=== PATIENT | male | born 1955 | race Caucasian/White ===

== ENCOUNTER 2022-05-13 08:20 | Outpatient (CLI) | payer MEDICARE, SELFPAY ==
[2022-05-13 12:18] LABS: Albumin* 3.9 g/dL (3.3-5.0); Chloride* 104 mmol/L (96-114)
[2022-05-13 12:19] LABS: Potassium* 4.8 mmol/L (3.6-5.1); Sodium* 139 mmol/L (135-149)
[2022-05-13 12:20] LABS: Cholesterol* 123 mg/dL (90-199)
[2022-05-13 12:21] LABS: Alanine Aminotransferase* 31 U/L (4-50); Alkaline Phosphatase* 100 U/L (40-150); Aspartate Amino Transferase* 24 U/L (12-35); Bilirubin Total* 0.4 mg/dL (0.1-1.5); Blood Urea Nitrogen* 20 mg/dL (7-30); Carbon Dioxide* 32 mmol/L (20-32); Creatinine* 0.9 mg/dL (0.5-1.5); Estimated Glomerular Filt Rate 94 ml/min; Glucose* 175 mg/dL (60-115); Total Protein* 6.5 g/dL (6.0-8.3)
[2022-05-13 12:22] LABS: Calcium* 8.9 mg/dL (8.4-10.6); HDL Cholesterol* 45 mg/dL (>=40); LDL Cholesterol Calculated 63 mg/dL (<100); Triglycerides* 74 mg/dL (40-149)
[2022-05-13 12:54] LABS: PSA Diagnostic* 6.22 ng/mL (0.10-4.00)
== END 2022-05-13 08:21 | disposition home or self-care (01) ==
PROVIDERS: PCP Family Medicine; Visit Provider Family Medicine
DX: E11.9 Type 2 diabetes mellitus without complications (principal); R97.20 Elevated prostate specific antigen [PSA]; E78.5 Hyperlipidemia, unspecified; I10 Essential (primary) hypertension; L98.9 Disorder of the skin and subcutaneous tissue, unspecified; Z12.5 Encounter for screening for malignant neoplasm of prostate
CPT/HCPCS: 80053; 80061; 84153

== ENCOUNTER 2023-06-26 15:34 | Outpatient (CLI) | payer MEDICARE, SELFPAY | END 2023-06-26 15:35 | disposition home or self-care (01) | PROVIDERS: PCP Family Medicine; Visit Provider Family Medicine | DX: E11.9 Type 2 diabetes mellitus without complications (principal); I10 Essential (primary) hypertension; E78.5 Hyperlipidemia, unspecified; R97.20 Elevated prostate specific antigen [PSA] | CPT/HCPCS: 80048; 80061; 84153 ==

== ENCOUNTER 2023-12-04 22:15 | Outpatient (REF) | payer MEDICARE, SELFPAY ==
--- OUTSIDE RECORDS SUMMARY | 2023-12-04 22:18 | XMS_ITS | Clinical Summary ---
Author Name Unknown Organization [employer] [facility] Address [place], [place] [address] Care Team Providers Care Personnel Generalist Manager Name Role Phone Lasha Tellez MD Primary Care Provider Allergies No known active allergies Medications Medication Sig Dispensed Refills Start Date End Date Status metFORMIN (GLUCOPHAGE) 500 mg tabletIndications:Ach illes bursitis or tendinitis Take 1 tablet by mouth 2 times daily with meals. 180 tablet 3 05/12/2011 Active furosemide (LASIX) 40 mg tabletIndications:HTN (hypertension) Take 1 tablet by mouth 2 times daily. 90 tablet 0 10/31/2014 Active Active Problems Problem Noted Date Diagnosed Date Type 2 diabetes mellitus without complication Diabetes 04/15/2010 HTN (hypertension) 04/15/2010 Immunizations Name Administration Dates Next Due Pneumococcal Poly,23-Valent (Pneumovax) 12/21/19 05 Tdap 12/20/2004 Family History Medical History Relation Name Comments Heart Disease Father [place] Cancer-breast Mother @ 69 Diabetes Mother Other Sister lung issues Relation Name Status Comments Father Mother Sister Social History Tobacco Use Types Packs/Day Years Used Date Smoking Tobacco: Never Smokeless Tobacco: Never Alcohol Use Standard Drinks/Week Comments Yes 4 (1 standard drink = 0.6 oz pur e alcohol) Sex and Gender Information Value Date Recorded Sex Assigned at Not on file Gender Identity Not on file Sexual Orientation Not on file Obstetrics History Last Filed Vital Signs Vital Sign Reading Time Taken Comments Blood Pressure 128/80 05/25/2015 1:20 PM CDT Pulse 76 05/25/2015 1:20 PM CDT Temperature 36.4 ??C (97.6 ??F) 10/31/2014 2:26 PM CS T Respiratory Rate - - Oxygen Saturation - - Inhaled Oxygen Concentration - - Weight 120.2 kg (265 lb) 05/25/2015 1:20 PM CDT Height 177.8 cm (5' 10) 05/25/2015 1:20 PM CDT Body Mass Index 38.02 05/25/2015 1:20 PM CDT Plan of Treatment Health Maintenance Due Date Last Done Comments COVID-19 vaccine series (#1) 06/08/1956 Depression screening for age 12+ 1966 BMI (ht and wt on same day) for age 18+ 1972 Hepatitis C screening for age 18-79 1972 Colonoscopy through age 75 1999 Zoster (shingles) series for age 50+ (1 of 2) 2004 Tetanus booster 12/20/2014 12/20/2004, 12/20/2004 Lipids for age 45-75 2016 2011, 03/30/20 09 Pneumococcal series for age 65+ (2 of 2 - PCV) 2019 12/20/2004 Influenza for age 65+ 06/16/2023 Tdap Completed 12/20/2004 Care Teams Personnel Generalist Manager Relationship Specialty Start Date End Date Lasha Tellez MD PCP - General Family Practice 09/24/11
[2023-12-04 23:25] LABS: PSA Diagnostic* 6.13 ng/mL (0.10-4.00)
== END 2023-12-04 22:16 | disposition home or self-care (01) ==
LOC: NPINS 22:15
PROVIDERS: PCP Family Medicine; Visit Provider Urology
DX: R97.20 Elevated prostate specific antigen [PSA] (principal)
CPT/HCPCS: 84153

== ENCOUNTER 2024-07-05 12:22 | Outpatient (CLI) | payer MEDICARE, SELFPAY ==
--- OUTSIDE RECORDS SUMMARY | 2024-07-05 12:26 | XMS_ITS | Continuity of Care Document ---
Author Organization [facility] [place] [facility], [facility] Address [address] [place] [address] Assessment No assessment recorded. Plan of Treatment Reminders Order Date Submit Date Provider Last Modified By Organization Details Last Modified Time Details Appointments ESTABL ISHED 10 2023 02:20P M Not available Not available Not available Lab PSA, serum or plasma 2023 024 darian hitchcock [facility], [address], [place], [address], 05/22/2024 15:56:31 PSA, total, serum or plasma - Linda mejia is schedu le to see Dr Arce on 4 at 3:20 PM 2023 024 darian hitchcock [facility], [address], [place], [address], 05/30/2024 09:08:19 Referral None record ed. Procedures None record ed. Surgeries None record ed. Imaging None record ed. Medication Orders None record ed. Patient TargetsNo targets recorded. Patient InstructionsNo instructions recorded. Reason for Referral None Reported. Results Created Date Observation Date Name Description Value Unit Range Abnormal Flag Note LastModifiedBy Organization Detail LastModifiedTime 05/22/2005/22/2024 PSA, serum or plasm a PSA 9.7 ng/ml 0-4.0 NG/mL Not Available [facility] [address], [place], [address], 05/21/2024 13:16:26 Result Notes None recorded. Procedures Surgical History Date Name Laterality Status Provider Name and Address Organization Details Recorded Time 4 Bladder Scan [facility]2024 13:16:18 4 Blood Draw/MOLASSES AND CARAMEL OPERATOR/PSA RESULTS [facility] 05/21/2024 13:16:20 4 Bladder Scan completed Rusty Gomez [facility] 12/06/2023 15:18:35 3 Bladder Scan completed Sadie Reed [facility] 06/07/2023 14:41:58 3 Blood Draw/MOLASSES AND CARAMEL OPERATOR/PSA RESULTS completed Sadie Reed [facility] 06/07/2023 14:28:31 3 Bladder Scan completed Sadieleoncio Reed [facility] 03/06/2023 12:39:19 3 Blood Draw/MOLASSES AND CARAMEL OPERATOR/PSA RESULTS completed Chirag Arce MD [address] [place] [address],[address], [address], [facility] 03/06/2023 11:53:43 3 Blood Draw/MOLASSES AND CARAMEL OPERATOR/PSA RESULTS completed Chirag Arce MD [address] [place] [address],[address] [place] [address], [address], [facility] 10/31/2022 15:51:53 2 Prostate Biopsy Procedure completed Chirag Arce MD [address] [place] [address],[address], [place], [address], [facility] 08/26/2022 16:08:53 2 URONAV completed Chirag Arce MD [address] [place] [address],[address], [address], [facility] 08/26/2022 11:03:42 2 Bladder Scan completed Mikhail Rubalcava [facility] 07/18/2022 15:16:02 5 Colonoscopy completed Criss Burnham [facility] 08/26/2022 15:37:45 Imaging Results None recorded. Procedure Notes None recorded. Medical Equipment None Reported. Allergies No known drug allergies Medications Name Sig Start Date Stop Date Status Note LastModified by Organization Details LastModified Time atorvastati n 40 mg tablet TAKE 1 TABLET BY MOUTH AT BEDTIME active Not Available Not Available No t Available metformin 500 mg tablet TAKE 1 TABLET BY MOUTH IN THE MORNING AND 2 TABLETS AT SUPPER. APPOINTME NT AND LABS DUE IN MAY. active Not Available Not Available No t Available clindamycin HCl 300 mg capsule 12/06 completed Not Available Not Available Not Available azithromyci n 250 mg tablet TAKE 2 TABLETS BY MOUTH ON DAY 1, AND THEN TAKE 1 TABLET BY MOUTH ONCE A DAY ON DAY 2 THROUGH DAY 5 12/06 completed Not Available Not Available Not Available hydrocodone 5 mg-acetamin ophen 325 mg tablet 12/06 completed Not Available Not Available Not Available glipizide ER 10 mg tablet, extended release 24 hr TAKE 2 TABLETS BY MOUTH ONCE DAILY 12/06 completed Not Available Not Available Not Available lisinopril 20 mg tablet TAKE 1 TABLET BY MOUTH ONCE DAILY 03/06 completed Not Available Not Available Not Available metronidazo le 500 mg tablet TAKE 1 TABLET BY MOUTH THREE TIMES DAILY active Not Available Not Available No t Available acetaminoph en 300 mg-codeine 30 mg tablet TAKE 1 TO 2 TABLETS BY MOUTH EVERY 6 HOURS NEEDED FOR PAIN 12/06 completed Not Available Not Available Not Available ciprofloxac in 500 mg tablet Take 1 tablet every 12 hours by oral route. 10/31 completed Not Available Not Available Not Available sildenafil 100 mg tablet TAKE 1 TABLET BY MOUTH ONCE DAILY NEEDED FOR SEXUAL ACTIVITY. ADIMINIST ER 30 MINUTES TO 4 HOURS BEFORE ACTIVITY. 12/06 completed Not Available Not Available Not Available triamcinolo ne acetonide 0.1 % topical cream 07/18 completed Not Available Not Available Not Available ceftriaxone 1 gram solution for injection Take 1 g by injection route. 03/06 completed Not Available Not Available Not Available methocarbam ol 750 mg tablet TAKE 1 TABLET BY MOUTH THREE TIMES DAILY 12/06 completed Not Available Not Available Not Available tamsulosin 0.4 mg capsule Take 2 capsules by mouth once daily 2023 active Not Available Not Available Not Avai lable cephalexin 500 mg capsule TAKE 1 CAPSULE BY MOUTH 4 TIMES DAILY active Not Available Not Available No t Available lisinopril 10 mg tablet 07/18 completed Not Available Not Available Not Available diclofenac sodium 75 mg tablet,elsie yed release TAKE 1 TABLET BY MOUTH TWICE DAILY WITH FOOD 12/06 completed Not Available Not Available Not Available diazepam 10 mg tablet 03/06 completed Not Available Not Available Not Available celecoxib 100 mg capsule TAKE 1 CAPSULE BY MOUTH TWICE DAILY NEEDED 12/06 completed Not Available Not Available Not Available ketoconazol e 2 % topical cream APPLY 1 CREAM TOPICALLY TWICE DAILY 12/06 completed Not Available Not Available Not Available lisinopril 40 mg tablet TAKE 1 TABLET BY MOUTH ONCE DAILY active Not Available Not Available No t Available naproxen 500 mg tablet TAKE 1 TABLET BY MOUTH TWICE DAILY 12/06 completed Not Available Not Available Not Available tadalafil 20 mg tablet Take 1 tablet every day by oral route. 12/06 completed Not Available Not Available Not Available Ozempic 1 mg/dose (4 mg/3 mL) subcutaneou s pen injector INJECT 1MG (0.75ML) SUBCUTANE OUSLY ONCE A WEEK. 05/22 completed Not Available Not Available Not Available Ozempic 0.25 mg or 0.5 mg (2 mg/3 mL) subcutaneou s pen injector INJECT 0.5MG SUBCUTANE OUSLY ONCE A WEEK 05/22 completed Not Available Not Available Not Available Vitals Date Recorded Body height Body mass index (BMI) Body weight Provider Name and Address Organization Details Last Updated DateTime 05/22/2024 177.8 cm 36.6 kg/m2 810261.[address] [facility] 05/22/2024 15:53:00 Social History Question Answer Notes LastModified by Organizat ion Details LastModified Time Tobacco Smoking Status Never Smoker Mikhail alvarado [facility] 07/18/2022 15:15:08 What Is Your Level Of Alcohol Consumption? None Information not available 10/31/2022 What Is Your Level Of Caffeine Consumption? None Information not available 10/31/2022 Are You Currently Employed? No Information not available 12/06/2023 Recreational Drug Use No Information not available 12/06/2023 What Was The Date Of Your Most Recent Tobacco Screening? 05/22/2024 [email or web address] Information not available 05/22/2024 What Is Your Relationship Status? Information not available 12/06/2023 Do You Use Any Illicit Or Recreational Drugs? No Information not available 10/31/2022 Has Tobacco Cessation Counseling Been Provided? No Information not available 12/06/2023 Sex: Unknown Functional Status None recorded. Mental Status None recorded. Family History Relationship Description Onset Age of this Age Resolved Age Notes LastModified by Organization Details LastModified Time Father No current problems or disability ssamb Not available 07/18 15:14:59 Mother No current problems or disability ssamb Not available 07/18 15:14:59 Medical History Condition Response Diabetes Y High Blood Pressure Y Past Encounters Encounter ID Performer Location Encounter Start Date Encounter Closed Date Diagnosis/Indication Diagnosis SNOMED-CT Code Diagnosis ICD10 Code [id number] Chirag Arce MD [facility] [address] [place] [address] 05/22/2024 15:21:09 05/28/2024 12:19:06 Prostate specific antigen above reference range 350336455 R97.20 Lower urin eligio tract symptoms due to benign prostatic hypertrophy 9263090802 9101 N40.1 Primary er ectile dysfunction 197752007 N52.9 Health Concerns Section Related Observation LastModified by Organization Detai ls LastModified Time None Recorded Concern Status LastModified by Organization Details LastModified Time None Recorded Payers Encounter Date Sequence Insurance Name Policy Number Policy Selby Covered Member ID Selby Member ID Guarantor Name 05/22/2024 1 [employer] - DOS ON OR AFTER 19 (MEDICARE REPLACEMENT/ ADVANTAGE - HMO) [id number] Aldair Winston [id number] Aldair Winston Notes Date Note Type Note Provider Name and Address Organization Details Recorded Time 05/22/2024 text/html HPI Notes: 68 yo male with history of HTN, hyperlipidemia, and DM (type 2) - presents for evaluation of elevated PSA. No Family Hx of Prostate cancer. He denies UTIs or prostatitis. He voids every 1-3 hours during the day and 0-2x/night. He notes occasional hesitancy. He does have trouble with ED for 2-3 years - difficulty obtaining / maintaining erections - no morning erections. He has not tried oral medications. He is on Flomax 0.4 mg daily. UroNav bx (08/26/22) - 84 gm - VANNESSA (Left apex) - no cancer - MRI lesion (Left apex) was negative 10/31/22 - He presents for follow-up on elevated PSA. He states his urination is worse over the past 10 days - more urgency and weaker stream. He voids every 1-3 hours during the day and 0x/night. 03/06/23 - He presents for follow-up on elevated PSA. He voids every 1-3 hours during the day and 0x/night. He notes occasional urgency - denies dysuria. 06/07/23 - He presents for follow-up on Elevated PSA. He voids every 1-3 hours during the day and 1x/night. 12/06/23 - He presents for follow-up on Elevated PSA. He voids every 1-3 hours during the day and 0-1x/night. Occasional urgency. 05/22/24- He presents for follow-up on Elevated PSA. He voids every 1-3 hours during the day and 0-1x/night. Occasional urge. No erections. - PSA - 9.7 - PVR = 2 mL PSA - 7.97 (08/09/20) - 6.59 (05/07/21) - 6.22 (05/13/22) - 7.8 (10/31/22) - 8.7 (03/06/23) - 8.7 (06/07/23) - 6.13 (12/04/23) - 9.7 (05/22/24) Prostate MRI (07/25/22) - 83 gm - Lesion 1 - (PI-RADS 3) - 0.6 x 0.5 cm - Left apex (PZ) - 5 o'clock - no enlarged lymph nodes Chirag Arce MD [address] [facility],[address], [place], [address], [place] [facility] 05/22/2024 18:41:43
--- OUTSIDE RECORDS SUMMARY | 2024-07-05 12:26 | XMS_ITS | Clinical Summary ---
Author Organization [employer] [facility] Address [place], [place] [address] Care Team Providers Care Pile Driver Operator Barge Mounted Name Role Phone Lasha Tellez MD Primary [...] History Relation Name Comments Heart Disease Father [place] Cancer-breast Mother @ 69 Diabetes Mother Other [...] Health Maintenance Due Date Last Done Comments Depression screening for age 12+ 1966 BMI [...] (2 of 2 - PCV) 2019 12/20/2004 COVID-19 vaccine series () 06/16/2024 Influenza for age 65+ 06/16/2024 Tdap Completed 12/20/2004 Procedures Procedure Name Priority Date/Time Associated Diagnosis Comments LDL CHOLESTEROL,DIRECT Routine 2011 2:10 PM COMMODITIES CLERK DM w/o complication type II from Last 3 Months or Most Recently Relevant to Health Maintenance Results * LDL CHOLESTEROL,DIRECT (2011 2:10 PM COMMODITIES CLERK) LDL CHOLESTEROL,D IRECT 129 Undefined mg/dL [facility] Comment: ?RISK CATEGORY LDL GOAL ?(mg/dL) ? Vascular disease and/or diabetes (<100) ? Multiple (2+) risk factors ? (<130) ? 0-1 risk factor ?(<160) Blood specimen (specimen) BLOOD SPECIMEN / Unknown 2011 2:10 PM COMMODITIES CLERK 2011 2:04 PM COMMODITIES CLERK [facility] [place]NAL ZIP [id number] [address] from Last 3 Months or Most Recently Relevant to Health Maintenance Care Teams Pile Driver Operator Barge Mounted Relationship Specialty Start Date End Date Lasha Tellez MD PCP - General Family Practice 09/24/11
== END 2024-07-05 12:23 | disposition home or self-care (01) ==
PROVIDERS: PCP Family Medicine; Visit Provider Family Medicine
DX: E11.9 Type 2 diabetes mellitus without complications (principal); I10 Essential (primary) hypertension; E78.5 Hyperlipidemia, unspecified; R53.83 Other fatigue
CPT/HCPCS: 80048; 80061; 82607; 84443

== ENCOUNTER 2025-04-30 12:24 | Outpatient (CLI) | payer MEDICARE, SELFPAY | END 2025-04-30 12:25 | disposition home or self-care (01) | PROVIDERS: PCP Family Medicine; Visit Provider Family Medicine | DX: E11.65 Type 2 diabetes mellitus with hyperglycemia (principal); R97.20 Elevated prostate specific antigen [PSA]; Z12.5 Encounter for screening for malignant neoplasm of prostate | CPT/HCPCS: 84443; G0103 ==

== ENCOUNTER 2025-10-06 10:30 | Outpatient (CLI) | payer MEDICARE, SELFPAY ==
--- NOTE | 2025-10-28 11:36 | W.PM.SLEEP ---
Sleep Study Details Details Interpreting Provider: Stevie Date of Sleep Study: 10/06/25 Sleep Study Details: STUDY TYPE:? Home unattended ? BMI:? 40.17 ORDERING PROVIDER:? Stevie INDICATION:? Concern for sleep apnea ? SLEEP SUMMARY:? 341 minutes monitored RESPIRATORY SUMMARY:? AHI 30 per CMS guideline Low oxygen 70 20.1% of study oxygen less than 90% Snoring 80.1% PERIODIC LIMB MOVEMENTS OF SLEEP:? Not recorded CARDIAC:? Range 50-83, mean 62.9 beats per minute IMPRESSION:? Severe obstructive sleep apnea with significant desaturation RECOMMENDATION: AutoSet CPAP or in-lab titration.
== END 2025-10-06 10:31 | disposition home or self-care (01) ==
LOC: SLEEP 10-27 09:27
PROVIDERS: PCP Family Medicine; Visit Provider Otolaryngology
DX: G47.33 Obstructive sleep apnea (adult) (pediatric) (principal)
CPT/HCPCS: 95806